=== PATIENT | female | born 1935 | race Caucasian/White ===

== ENCOUNTER 2018-06-06 10:42 | Observation (INO) ==
[2018-06-06] MEDS ORDERED: Isovue-370 500 ML INFUS..BTL IV ONE (11:09)
[2018-06-06] MEDS ORDERED: 0.9 % Sodium Chloride 500 ML IVC STA (11:10)
[2018-06-06] MEDS ORDERED: Ipratropium/Albuterol Neb 3 ML IH ONE (11:10)
[2018-06-06] MEDS ORDERED: Ondansetron 4 MG/2 ML VIAL IVP STA (11:27)
--- NOTE | 2018-06-06 11:28 | Emergency Department Note ---
Disposition Clinical Impression: Decreased appetite, Dehydration, DEANNA (acute kidney injury), Weakness Disposition: Admitted As Inpatient Condition: Good Referrals: Marbin,Kristyn King CNP [Primary Care Provider] - Forms: ED Satisfaction Letter General Adult HPI - General Chief complaint: ED Nausea/Vomiting/Diarrhea Stated complaint: "weak,diarrhea" Time Seen by Provider: 06/06/18 10:52 Source: patient, family Limitations: no limitations Nursing Notes Reviewed: Yes Vital Signs Reviewed: Yes - History of Present Illness HPI Narrative: Patient presenting for evaluation of weakness. Symptoms started about 3 weeks ago when she was placed on antibiotics. Initial doxycycline and then transition to different medication which she does not know. Outpatient chest x-ray showed concern for pneumonia. She does have COPD. She has not had significant respiratory symptoms. She has had a cough but nonproductive in nature. Coughing bouts cause her to have vomiting episodes. Over the last several days starting on Wednesday she has had associated diarrhea. Multiple episodes throughout the day which she describes as loose stools. No blood within the stools. Patient has had associated left lower quadrant tenderness as well as epigastric fullness. Does have a history of abdominal surgeries. 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 Pain Scale: 2 - Related Data Home Medications Medication Instructions Recorded Confirmed Albuterol Sulfate [Proventil Hfa] 2 puff IH Q4H PRN 01/21/15 05/03/18 Budesonide/Formoterol 160/4.5 2 puff IH BIDR 01/21/15 05/03/18 [Symbicort 160/4.5] Docusate [Colace] 100 mg PO DAILY 01/21/15 05/03/18 FLUoxetine HCl [Prozac] 20 mg PO DAILY 01/21/15 05/03/18 Folic Acid 1 mg PO DAILY 01/21/15 05/03/18 Hydrochlorothiazide 25 mg PO DAILY 01/21/15 05/03/18 LORazepam [Ativan] 0.5 mg PO TID 01/21/15 05/03/18 Losartan Potassium [Cozaar] 50 mg PO DAILY 01/21/15 05/03/18 Levothyroxine [Synthroid] 75 mcg PO DAILY 08/19/15 05/03/18 Zolpidem [Ambien] 10 mg PO HS 08/19/15 05/03/18 Famotidine [Pepcid] 20 mg PO DAILY 05/04/18 05/04/18 Previous Rx's Medication Instructions Recorded Cholecalciferol (D-3) [Vitamin D] 1,000 unit PO DAILY #90 tab 12/17/16 Handicap Placard 1 each .ROUTE AD #1 each 02/01/17 Humidifier 1 each MC AD #1 each 02/01/17 Gabapentin [Neurontin] 300 mg PO QPM PRN #30 capsule 06/29/17 Anastrozole [Arimidex] 1 tab PO DAILY #90 tablet 09/17/17 Allergies Allergy/AdvReac Type Severity Reaction Status Date / Time guaifenesin AdvReac Abdominal Verified 05/03/18 10:29 Pain All systems ED: reviewed and negative except as stated. Review of Systems: As Per HPI Constitutional: Reports: chills, weakness. Denies: fever ENT ED: Reports: congestion Cardiovascular: Reports: dyspnea on exertion. Denies: chest pain, palpitations Respiratory: Reports: cough. Denies: dyspnea, wheezes Gastrointestinal: Reports: abdominal pain, nausea, diarrhea Genitourinary: Denies: urgency, dysuria Musculoskeletal: Denies: back pain, neck pain Integumentary: Denies: rash, abrasion Neurological: Reports: weakness. Denies: headache Psychiatric: Denies: anxiety Endocrine: Reports: fatigue Past Medical History - Past Medical History Medical history: Reports: cancer, COPD, GERD, hypertension, renal disease, thyroid disease, other Surgical history: Reports: cancer surgery, cataract, cholecystectomy, colectomy, herniorrhaphy, hysterectomy Psychiatric history: Reports: anxiety, depression - Social History Smoking Status: Unknown if ever smoked Smokeless Tobacco Status: No Alcohol use: Reports: unknown Drug use: Reports: none Physical Exam General: Well appearing, nontoxic, no acute distress Head: Normocephalic Atraumatic Eyes: PERRL, EOMI ENT: Airway patent, no stridor Neck: supple, no meningismus Chest: Lungs clear to auscultation bilateral Cardiac: Regular rate and rhythm, no murmurs, rubs or gallops Abdomen: soft, mild tenderness to LLQ, nondistended; no guarding, rebound, or tenderness to percussion Musculoskeletal: Calves symmetric, nontender, no palpable cord Skin: No rash, normal skin tone Neuro: Alert and Oriented to person, place, and time; No focal deficit, CN 2-12 symmetric and intact - General Limitations: no limitations General appearance: alert, in no apparent distress Course - Reevaluation(s) Reevaluation #1: Patient has worsening kidney function over the last several weeks due to decreased by mouth intake. Given the diarrhea that she has recently it does not appear to be watery or profuse in nature. Less likely to be C. difficile. Patient has normal white count. Patient does not have evidence of pneumonia on x-ray. CT of the abdomen and pelvis did not show acute abnormality. At this point the patient has not been doing well at home. Would not be able to be hydrated at home and will likely benefit from IV fluids and continued investigation into underlying etiology. - Consultations Consultation #1: Discussed with hospitalist. Patient accepted for admission. Vital Signs Temperature 98.0 F 06/06/18 10:45 Pulse Rate 75 06/06/18 10:45 Respiratory Rate 18 06/06/18 10:45 Blood Pressure 134/77 06/06/18 10:45 O2 Sat by Pulse Oximetry 96 06/06/18 10:45 Temperature 98.0 F 06/06/18 11:08 Pulse Rate 75 06/06/18 11:08 Respiratory Rate 16 06/06/18 11:41 Blood Pressure 134/77 06/06/18 11:08 O2 Sat by Pulse Oximetry 99 06/06/18 11:41 Oxygen Delivery Oxygen Delivery Room Air Medical Decision Making - Medical Records Medical records reviewed: Yes I reviewed the patient's medical records. - Lab Data Lab results reviewed: Yes I reviewed the patient's lab results. Result diagrams: 06/06/18 11:31 06/06/18 11:31 Lab Results 06/06/18 06/06/18 06/06/18 Range/Units 11:31 11:31 11:31 WBC 5.6 (4.3-11.1) K/mcL RBC 3.62 L (3.82-4.97) M/mcL Hgb 11.4 L (11.5-15.4) g/dL Hct 34.2 L (35.3-44.9) % MCV 94.5 (83.0-100.0) fL MCH 31.5 (28.0-33.3) pg MCHC 33.3 (31.6-35.5) g/dL RDW 12.7 (11.5-14.5) % Plt Count 211 (140-400) K/mcL MPV 9.8 (9.4-12.4) fL Immature Gran % 0.7 (0-4) % Seg Neutrophils % 66.6 % Lymphocytes % 20.8 % Monocytes % 9.8 % Eosinophils % 1.6 % Basophils % 0.5 % Neutrophils # 3.8 (1.6-8.9) K/mcL Lymphocytes # 1.2 (0.6-4.6) K/mcL Monocytes # 0.6 (0.0-1.3) K/mcL Eosinophils # 0.1 (0.0-0.6) K/mcL Basophils # 0.0 (0.0-0.2) K/mcL Sodium 138 (136-145) mEq/L Potassium 3.3 L (3.5-5.1) mEq/L Chloride 104 (98-107) mEq/L Carbon Dioxide 27 (23-29) mEq/L BUN 21 (8-23) mg/dL Creatinine 1.61 H (0.60-1.20) mg/dL Est GFR ( Amer) 37 L (> 60) Est GFR (Non-Af Amer) 31 L (> 60) BUN/Creatinine Ratio 13 (6-26) Glucose 110 H (70-105) mg/dL Calculated Osmolality 290 (280-300) Calcium 8.6 (8.6-10.3) mg/dL Total Bilirubin 0.6 (0.3-1.0) mg/dL Direct Bilirubin 0.1 (0.0-0.2) mg/dL Indirect Bilirubin 0.5 (0.0-1.2) mg/dL AST 14 (13-39) Units/L ALT 6 L (7-52) Units/L Alkaline Phosphatase 42 (34-104) Units/L Troponin I < 0.03 (< 0.04) ng/mL Serum Total Protein 5.7 L (6.4-8.9) g/dL Albumin 3.4 L (3.5-5.7) g/dL Globulin 2.3 L (2.4-3.5) g/dL Albumin/Globulin Ratio 1.5 (1.1-2.2) Lipase 20 (11-82) Units/L Urine Color Yellow (Yellow) Urine Clarity Clear (Clear) Urine pH 6.0 (5.0-8.0) pH Units Ur Specific [place] 1.022 (1.010-1.025) Urine Protein Negative (Neg-Trace) mg/dL Urine Glucose (UA) Normal (Normal) mg/dL Urine Ketones Negative (Negative) mg/dL Urine Blood Negative (Negative) Urine Nitrite Negative (Negative) Urine Bilirubin Negative (Negative) Urine Urobilinogen Normal (Normal) mg/dL Ur Leukocyte Esterase Trace H (Negative) Urine Microscopic RBC 0-3 (0-3) per hpf Urine Microscopic WBC 0-3 (0-3) per hpf Ur Squamous Epith Cells Many H (None-Few) per lpf Urine Bacteria None Seen (None-Few) per hpf Hyaline Casts None Seen (None-Few) per lpf Ur Culture Indicated? NO. A (NO) - Radiology Data Radiology results reviewed: Yes I reviewed the patient's radiology results. - EKG Data EKG #1 EKG attestation: Yes I reviewed and interpreted this EKG. EKG results narrative: FREEBORN EKG shows sinus rhythm with heart of 63. Of 140 QRS 96 QTC 409 patient has no significant ST elevations or depressions in comparison to old EKG of 09/24/16.
[2018-06-06 11:41] LABS: Bilirubin,Urine Negative (Negative); Blood,Urine Negative (Negative); Clarity,Urine Clear (Clear); Color,Urine Yellow (Yellow); Glucose,Urine (UA) Normal (Normal); Ketones,Urine Negative (Negative); Leukocyte Esterase,Urine Trace (Negative); Nitrite,Urine Negative (Negative); Protein,Urine Negative (Neg-Trace); Specific Gravity,Urine 1.022 (1.010-1.025); Urobilinogen,Urine Normal (Normal)
[2018-06-06 11:42] LABS: Basophils % 0.5 %; Eosinophils # 0.1 K/mcL (0.0-0.6); Eosinophils % 1.6 %; Hematocrit 34.2 % (35.3-44.9); Hemoglobin 11.4 g/dL (11.5-15.4); Immature Granulocytes % 0.7 % (0-4); Lymphocytes # 1.2 K/mcL (0.6-4.6); Lymphocytes % 20.8 %; Mean Corpuscular HGB Conc 33.3 g/dL (31.6-35.5); Mean Corpuscular Hemoglobin 31.5 pg (28.0-33.3); Mean Corpuscular Volume 94.5 fL (83.0-100.0); Mean Platelet Volume 9.8 fL (9.4-12.4); Monocytes # 0.6 K/mcL (0.0-1.3); Monocytes % 9.8 %; Neutrophils # 3.8 K/mcL (1.6-8.9); Platelet Count 211 K/mcL (140-400); Red Blood Count 3.62 M/mcL (3.82-4.97); Red Cell Distribution Width 12.7 % (11.5-14.5); Segmented Neutrophils % 66.6 %
[2018-06-06 11:44] LABS: Bacteria,Urine None Seen per hpf (None-Few); Hyaline Casts,Urine None Seen per lpf (None-Few); RBC,Urine 0-3 per hpf (0-3); Squamous Epithelial Cell,Urine Many per lpf (None-Few); WBC,Urine 0-3 per hpf (0-3)
[2018-06-06 12:03] LABS: Alanine Aminotransferase 6 Units/L (7-52); Albumin 3.4 g/dL (3.5-5.7); Albumin/Globulin Ratio 1.5 (1.1-2.2); Alkaline Phosphatase 42 Units/L (34-104); Aspartate Amino Transferase 14 Units/L (13-39); BUN/Creatinine Ratio 13 (6-26); Bilirubin,Direct 0.1 mg/dL (0.0-0.2); Bilirubin,Indirect 0.5 mg/dL (0.0-1.2); Bilirubin,Total 0.6 mg/dL (0.3-1.0); Blood Urea Nitrogen 21 mg/dL (8-23); Calcium 8.6 mg/dL (8.6-10.3); Carbon Dioxide 27 mEq/L (23-29); Chloride 104 mEq/L (98-107); Globulin 2.3 g/dL (2.4-3.5); Glucose 110 mg/dL (70-105); Lipase 20 Units/L (11-82); Osmolality,Calculated 290 (280-300); Potassium 3.3 mEq/L (3.5-5.1); Sodium 138 mEq/L (136-145); Total Protein 5.7 g/dL (6.4-8.9); Troponin I < 0.03 ng/mL (< 0.04); eGFR For Non-African Americans 31 (> 60)
[2018-06-06 14:32] LABS: Thyroid Stimulating Hormone 0.202 mcIU/mL (0.340-5.600)
[2018-06-06] MEDS ORDERED: traMADol 50 MG TABLET PO PRN (14:34)
[2018-06-06] MEDS ORDERED: Acetaminophen 325 MG TABLET PO PRN (14:34)
[2018-06-06] MEDS ORDERED: Naloxone 0.4 MG/ML INJ IVP PRN (14:34)
--- NOTE | 2018-06-06 14:44 | Internal Med History&Physical ---
Date of Encounter: 06/06/18 Time of Encounter: 14:40 Internal Medicine - H&P: HPI Admitted From: Home Plans for Post Hospital Care: Home History of present illness: Ms. Rae is a 82 year old female presenting for evaluation of weakness. Symptoms started about 3 weeks ago when she was placed on antibiotics. Initial doxycycline and then transition to z pack. Outpatient chest x-ray showed concern for pneumonia. She does have COPD. She has not had significant respiratory symptoms. She has had a cough but nonproductive in nature. Cough ing bouts cause her to have vomiting episodes. Over the last several days starting on Wednesday she has had associated diarrhea. Multiple episodes throughout the day which she describes as loose stools. No blood within the stools. Patient has had associated left lower quadrant tenderness as well as epigastric fullness. Does have a history of abdominal surgeries. At the ED, her vital signs were stable. Labs has elevated Cr and low total protein. CXR no PNA and CT of the abdomen and pelvis without contrast no acute findings. Due to her recent abx use and diarrhea, C.diff colitis was concerned and she will be admitted as observation. 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 Psychiatric history: anxiety, depression - Past Surgical History Surgical History: cancer surgery, cataract, cholecystectomy, colectomy, herniorrhaphy, hysterectomy Additional surgical history: partial hysterectomy, 4 hernia repairs, bowel resection, GB, trach for 11 months, port placed, masectomy, D&C - Social History Smoking Status: Unknown if ever smoked Smokeless Tobacco Status: No Alcohol use: unknown Drug use: none Internal Medicine - H&P: Meds Albuterol Sulfate [Proventil Hfa] 2 puff IH Q4H PRN 01/21/15 [History] Budesonide/Formoterol 160/4.5 [Symbicort 160/4.5] 2 puff IH BIDR 01/21/15 [Histo ry] Docusate [Colace] 100 mg PO DAILY 01/21/15 [History] FLUoxetine HCl [Prozac] 20 mg PO DAILY 01/21/15 [History] Folic Acid 1 mg PO DAILY 01/21/15 [History] Hydrochlorothiazide 25 mg PO DAILY 01/21/15 [History] LORazepam [Ativan] 0.5 mg PO TID 01/21/15 [History] Losartan Potassium [Cozaar] 50 mg PO DAILY 01/21/15 [History] Levothyroxine [Synthroid] 75 mcg PO DAILY 08/19/15 [History] Zolpidem [Ambien] 10 mg PO HS 08/19/15 [History] Cholecalciferol (D-3) [Vitamin D] 1,000 unit PO DAILY #90 tab 12/17/16 [Rx] Handicap Placard 1 each .ROUTE AD #1 each 02/01/17 [Rx] Humidifier 1 each MC AD #1 each 02/01/17 [Rx] Gabapentin [Neurontin] 300 mg PO QPM PRN #30 capsule 06/29/17 [Rx] Anastrozole [Arimidex] 1 tab PO DAILY #90 tablet 09/17/17 [Rx] Famotidine [Pepcid] 20 mg PO DAILY 05/04/18 [History] Allergy/AdvReac Type Severity Reaction Status Date / Time guaifenesin AdvReac Abdominal Verified 05/03/18 10:29 Pain All Systems PM: A 10-system review of systems was performed and is negative for pertinent findings except as documented above in the HPI. Review of systems: REVIEW OF SYSTEMS: CONSTITUTIONAL: No weight loss, fever, chills, see HPI. HEENT: Eyes: No visual loss, blurred vision, double vision or yellow sclerae. Ears, Nose, Throat: No hearing loss, sneezing, congestion, runny nose or sore throat. SKIN: No rash or itching. CARDIOVASCULAR: No chest pain, chest pressure or chest discomfort. No palpitations or edema. RESPIRATORY: No shortness of breath, cough or sputum. GASTROINTESTINAL: No anorexia, nausea, vomiting. No abdominal pain or blood. see HPI. GENITOURINARY: No dysuria, urgency, or frequency. NEUROLOGICAL: No headache, dizziness, syncope, paralysis, ataxia, numbness or tingling in the extremities. No change in bowel or bladder control. MUSCULOSKELETAL: No muscle, back pain, joint pain or stiffness. HEMATOLOGIC: No anemia, bleeding or bruising. LYMPHATICS: No enlarged nodes. No history of splenectomy. PSYCHIATRIC: No history of depression or anxiety. ENDOCRINOLOGIC: No reports of sweating, cold or heat intolerance. No polyuria or polydipsia. - Constitutional Vitals: Temp Pulse Resp BP Pulse Ox 98.0 F 75 13 127/59 99 06/06/18 11:08 06/06/18 11:08 06/06/18 14:11 06/06/18 14:11 06/06/18 11:41 General appearance: Present: cooperative, A&O X 3, answers questions appropriately Exam: PHYSICAL EXAMINATION: GENERAL APPEARANCE: The patient is alert, oriented and in no acute distress. HEENT: Head is normocephalic. The sinuses are nontender. Pupils are equal and reactive. The nares are patent. Oropharynx clear without lesions. NECK: Supple without lymphadenopathy. HEART: Regular rate and rhythm. LUNGS: No crackles or wheezes are heard. ABDOMEN: Soft, nontender, nondistended with good bowel sounds heard. Inguinal area is normal. EXTREMITIES: Without cyanosis, clubbing or edema. NEUROLOGICAL: Gross nonfocal. SKIN: Warm and dry without any rash. Internal Med - H&P Results - Labs CBC & Chem 7: 06/06/18 11:31 06/06/18 11:31 Labs: Short CBC 06/06/18 Range/Units 11:31 WBC 5.6 (4.3-11.1) K/mcL Hgb 11.4 L (11.5-15.4) g/dL Hct 34.2 L (35.3-44.9) % Plt Count 211 (140-400) K/mcL Neutrophils # 3.8 (1.6-8.9) K/mcL BMP 06/06/18 11:31 Sodium 138 Potassium 3.3 L Chloride 104 Carbon Dioxide 27 BUN 21 Creatinine 1.61 H Glucose 110 H Calcium 8.6 Cardiac Enzymes 06/06/18 Range/Units 11:31 Troponin I < 0.03 (< 0.04) ng/mL Liver Function 06/06/18 Range/Units 11:31 Total Bilirubin 0.6 (0.3-1.0) mg/dL Direct Bilirubin 0.1 (0.0-0.2) mg/dL AST 14 (13-39) Units/L ALT 6 L (7-52) Units/L Alkaline Phosphatase 42 (34-104) Units/L Albumin 3.4 L (3.5-5.7) g/dL Urine 06/06/18 Range/Units 11:31 Urine Color Yellow (Yellow) Urine Clarity Clear (Clear) Urine pH 6.0 (5.0-8.0) pH Units Ur Specific [place] 1.022 (1.010-1.025) Urine Protein Negative (Neg-Trace) mg/dL Urine Glucose (UA) Normal (Normal) mg/dL - Impressions ITS Impressions Chest X-Ray 06/06/18 11:09 IMPRESSION: No acute cardiopulmonary disease. D/ / Jerod Platt MD / Jerod Platt MD Interpreting Provider: Jerod Platt MD Abdomen/Pelvis CT 06/06/18 11:12 IMPRESSION: 1. No acute findings in the abdomen or pelvis. 2. Incidental findings as above. D/ / Nilesh Slaughter MD / Nilesh Slaughter MD Interpreting Provider: Nilesh Slaughter MD - Assessment and plan (1) Weakness Current Visit: Yes Status: Acute Assessment and plan: 82 year old female with pMH of COPD, CKD, Vit D deficiency, HTN and laryngeal and breast cancer presented with 3 weeks of weakness with associated cough, and diarrhea. Seen by PCP and was diagnosed with PNA, treated with oral doxycycline and Z pack, but developed diarrhea. ED workup CXR no pna, CT abd and pelvis no acute finding. - Recent labs showed normal Vit D level, TSH was boreline in 2016, will repeat. Vit B12 was normal in 2016, will repeat. - No evidence of infection. - will check prealbumin fiven low total protein level. - Pt seems not depressed, continue home meds Fluexitine. - replace K, pending cortisol level. (2) Diarrhea Current Visit: Yes Status: Acute Assessment and plan: GI panel and c.diff pending. IVF. Qualifiers: Diarrhea type: unspecified type Qualified Code(s): R19.7 - Diarrhea, u nspecified (3) Acute on chronic renal failure Current Visit: Yes Status: Acute Assessment and plan: Baseline Cr about 1.2-1.3, likely due to diarrhea. repeat BMP in am. Qualifiers: Acute renal failure type: unspecified Chronic kidney disease stage: stage 2 (mild) Qualified Code(s): N17.9 - Acute kidney failure, unspecified; N18.2 - Chronic kidney disease, stage 2 (mild) (4) Hypothyroidism (acquired) Current Visit: No Status: Chronic Assessment and plan: TSH borderline. normal free T4. (5) COPD (chronic obstructive pulmonary disease) Current Visit: No Status: Chronic Assessment and plan: No respiratory distress, continue home meds. Qualifiers: COPD type: emphysema Emphysema type: unspecified Qualified Code(s): J43.9 - Emphysema, unspecified (6) Vitamin D deficiency Current Visit: No Status: Chronic Assessment and plan: recent Vit D level normal. continue home Vit D. (7) DVT prophylaxis Current Visit: Yes Status: Acute Assessment and plan: Heparin sq. - Time Spent With Patient Total time spent is greater than 50% in coordination of care (as documented) at patient's floor/unit and/or counseling patient: Greater than 35 minutes
[2018-06-06] MEDS: *HR* Heparin 5,000 UNIT/ML VIAL SQ SCH (18:20)
[2018-06-06] MEDS: Budesonide/Formoterol 160/4.5 1 PUFF INH IH SCH (22:11)
[2018-06-06] MEDS: *HR* LORazepam 0.5 MG TABLET PO SCH (22:11)
[2018-06-07 04:14] LABS: Basophils % 0.6 %; Eosinophils # 0.1 K/mcL (0.0-0.6); Eosinophils % 2.6 %; Hematocrit 28.9 % (35.3-44.9); Immature Granulocytes % 0.4 % (0-4); Lymphocytes # 1.4 K/mcL (0.6-4.6); Lymphocytes % 26.9 %; Mean Corpuscular HGB Conc 33.6 g/dL (31.6-35.5); Mean Corpuscular Hemoglobin 32.4 pg (28.0-33.3); Mean Corpuscular Volume 96.7 fL (83.0-100.0); Mean Platelet Volume 10.3 fL (9.4-12.4); Monocytes # 0.6 K/mcL (0.0-1.3); Monocytes % 11.6 %; Platelet Count 182 K/mcL (140-400); Red Blood Count 2.99 M/mcL (3.82-4.97); Red Cell Distribution Width 12.7 % (11.5-14.5); Segmented Neutrophils % 57.9 %
[2018-06-07 04:20] LABS: Hemoglobin 9.7 g/dL (11.5-15.4)
[2018-06-07 04:23] LABS: Calcium 8.1 mg/dL (8.6-10.3)
[2018-06-07] MEDS: *HR* Heparin 5,000 UNIT/ML VIAL SQ SCH (06:03)
[2018-06-07] MEDS: Budesonide/Formoterol 160/4.5 1 PUFF INH IH SCH (08:03)
--- NOTE | 2018-06-07 08:46 | Electrocardiograph Report ---
[facility] Date: 2018-06-06 Pat Name: Yelena Rae Department: EXAMC2 Room: 3B16 Gender: F Fruit Vendor: : [id number] Requested By: Kwame Ramirez Order Number: [id number] [place] MD: Melody Posey Measurements Intervals [place] Rate: 63 P: 81 ME: 140 QRS: 65 QRSD: 96 T: 65 QT: 399 QTc: 409 Interpretive Statements Sinus rhythm Ventricular premature complex Electronically Signed On 06-07-2018 8:44:16 EST by Melody Posey
--- NOTE | 2018-06-07 08:50 | Internal Med Progress Note ---
Hospitalist Progress Note - Encounter Date of Encounter: 06/07/18 Time of Encounter: 08:50 - Subjective Interval History: Patient seen and examined at bedside - no events overnight -states that she feels better- She has not had any stools and ststaes she has not had any stools since Sat- She does admit to sick contacts at [facility]- she did not receive flu or pneumonia vaccine- encourage patient to ambulate - Exam Vitals: Temp Pulse Resp BP Pulse Ox 97.9 F 61 16 126/55 95 06/07/18 07:24 06/07/18 07:24 06/07/18 08:03 06/07/18 07:24 06/07/18 08:03 Exam: PHYSICAL EXAMINATION: GENERAL APPEARANCE: The patient is alert, oriented and in no acute distress. HEENT: Head is normocephalic. The sinuses are nontender. Pupils are equal and reactive. The nares are patent. Oropharynx clear without lesions. NECK: Supple without lymphadenopathy. HEART: Regular rate and rhythm. LUNGS: No crackles or wheezes are heard. ABDOMEN: Soft, nontender, nondistended with good bowel sounds heard. Inguinal area is normal. EXTREMITIES: Without cyanosis, clubbing or edema. NEUROLOGICAL: Gross nonfocal. SKIN: Warm and dry without any rash. - Assessment and Plan (1) Hypothyroidism (acquired) Current Visit: No Status: Chronic (2) Weakness Current Visit: Yes Status: Acute (3) Acute on chronic renal failure Current Visit: Yes Status: Acute (4) DVT prophylaxis Current Visit: Yes Status: Acute (5) Diarrhea Current Visit: Yes Status: Acute (6) COPD (chronic obstructive pulmonary disease) Current Visit: No Status: Chronic (7) Vitamin D deficiency Current Visit: No Status: Chronic - Time Spent with Patient Total time spent is greater than 50% in coordination of care (as documented) at patient's floor/unit and/or counseling patient: Internal Medicine: Result - Labs CBC & Chem 7: 06/07/18 03:20 06/07/18 03:20 Labs: Short CBC 06/06/18 06/07/18 Range/Units 11:31 03:20 WBC 5.6 5.1 (4.3-11.1) K/mcL Hgb 11.4 L 9.7 L D (11.5-15.4) g/dL Hct 34.2 L 28.9 L (35.3-44.9) % Plt Count 211 182 (140-400) K/mcL Neutrophils # 3.8 3.0 (1.6-8.9) K/mcL BMP 06/06/18 06/07/18 11:31 03:20 Sodium 138 137 Potassium 3.3 L 4.0 Chloride 104 108 H Carbon Dioxide 27 22 L BUN 21 18 Creatinine 1.61 H 1.39 H Glucose 110 H 94 Calcium 8.6 8.1 L Cardiac Enzymes 06/06/18 Range/Units 11:31 Troponin I < 0.03 (< 0.04) ng/mL Liver Function 06/06/18 Range/Units 11:31 Total Bilirubin 0.6 (0.3-1.0) mg/dL Direct Bilirubin 0.1 (0.0-0.2) mg/dL AST 14 (13-39) Units/L ALT 6 L (7-52) Units/L Alkaline Phosphatase 42 (34-104) Units/L Albumin 3.4 L (3.5-5.7) g/dL Urine 06/06/18 Range/Units 11:31 Urine Color Yellow (Yellow) Urine Clarity Clear (Clear) Urine pH 6.0 (5.0-8.0) pH Units Ur Specific [place] 1.022 (1.010-1.025) Urine Protein Negative (Neg-Trace) mg/dL Urine Glucose (UA) Normal (Normal) mg/dL - Impressions Impressions Chest X-Ray 06/06/18 11:09 IMPRESSION: No acute cardiopulmonary disease. D/ / Jerod Platt MD / Jerod Platt MD Interpreting Provider: Jerod Platt MD Abdomen/Pelvis CT 06/06/18 11:12 IMPRESSION: 1. No acute findings in the abdomen or pelvis. 2. Incidental findings as above. D/ / Nilesh Slaughter MD / Nilesh Slaughter MD Interpreting Provider: Nilesh Slaughter MD Consult Discharge Plan - Plan Referrals: Zazueta,Kristyn L, MERCH[employer]ISE [employer]ING MANAGER [Primary Care Provider] - () (3) Acute on chronic renal failure Qualifiers: Acute renal failure type: unspecified Chronic kidney disease stage: stage 2 (mild) Qualified Code(s): N17.9 - Acute kidney failure, unspecified; N18.2 - Chronic kidney disease, stage 2 (mild) (5) Diarrhea Qualifiers: Diarrhea type: unspecified type Qualified Code(s): R19.7 - Diarrhea, unspecified (6) COPD (chronic obstructive pulmonary disease) Qualifiers: COPD type: emphysema Emphysema type: unspecified Qualified Code(s): J43.9 - Emphysema, unspecified
[2018-06-07] MEDS ORDERED: FLUoxetine 20 MG CAPSULE PO SCH (09:00)
[2018-06-07] MEDS: *HR* LORazepam 0.5 MG TABLET PO SCH ×2 (09:33→15:15)
[2018-06-07 10:32] LABS: Adenovirus Not Detected (Not Detect); Bordetella Pertussis Not Detected (Not Detect); Chlamydophila pneumoniae Not Detected (Not Detect); Coronavirus 229E Not Detected (Not Detect); Coronavirus HKU1 Not Detected (Not Detect); Coronavirus NL63 Not Detected (Not Detect); Coronavirus OC43 Not Detected (Not Detect); Human Metapneumovirus Not Detected (Not Detect); Human Rhinovirus/Enterovirus Not Detected (Not Detect); Influenza A Subtype 2009 H1 Not Detected (Not Detect); Influenza A Untypeable Not Detected (Not Detect); Influenza B Not Detected (Not Detect); Mycoplasma pneumoniae Not Detected (Not Detect); Parainfluenza Virus 1 Not Detected (Not Detect); Parainfluenza Virus 2 Not Detected (Not Detect); Parainfluenza Virus 3 Not Detected (Not Detect); Parainfluenza Virus 4 Not Detected (Not Detect); Respiratory Syncytial Virus Not Detected (Not Detect)
[2018-06-07 11:28] VITALS: BP 112/53
[2018-06-07 12:45] LABS: Hematocrit 30.2 % (35.3-44.9)
--- NOTE | 2018-06-07 15:17 | Discharge Summary ---
- NOTES TO OUTPATIENT PROVIDER Notes to Outpatient Provider: Patient presented with weakness which started approximately 3 weeks ago after being placed on antibiotics she did have some diarrhea at home however in no diarrhea here at Hospital-hypokalemia potassium was replenished and given IV fluids Orders not resulted at time of discharge: Pending orders 06/06/18 11:31 Free T4 byEquilibrium Dialysis Stat Date of Encounter: 06/07/18 Time of Encounter: 15:14 - Discharge Diagnosis (1) Hypothyroidism (acquired) Priority: Secondary Status: Chronic (2) Weakness Priority: Primary Status: Acute (3) Acute on chronic renal failure Priority: Secondary Status: Acute Qualifiers: Acute renal failure type: unspecified Chronic kidney disease stage: stage 2 (mild) Qualified Code(s): N17.9 - Acute kidney failure, unspecified; N18.2 - Chronic kidney disease, stage 2 (mild) (4) Diarrhea Priority: Secondary Status: Acute Qualifiers: Diarrhea type: unspecified type Qualified Code(s): R19.7 - Diarrhea, unspecified (5) COPD (chronic obstructive pulmonary disease) Priority: Secondary Status: Chronic Qualifiers: COPD type: emphysema Emphysema type: unspecified Qualified Code(s): J43.9 - Emphysema, unspecified (6) Vitamin D deficiency Priority: Secondary Status: Chronic Hospital course: Ms. Rae is a 82 year old female past medical history of COPD GERD hypertension renal disease hypothyroid patient presented to [facility] after experiencing weakness. Patient had been on antibiotics approximately 3 weeks ago per her PCP with some concern for possible pneumonia. Patient does admit that she did have a sick exposure while at [facility] since that time she has had a cough no fevers. After starting antibiotic she has had several loose stools however last stool was on Wednesday. Denies any bloody stools. Upon presentation she was found to have a KI chest x-ray with no pneumonia CT of the abdomen pelvis with and without contrast with no acute findings she was admitted for concerns of possible C. difficile colitis due to recent antibiotic use. During this admission patient did not have any loose stools no fevers no white count. Urinalysis was negative Respiratory panel was completed which was negative patient was given IV fluids/lites were replaced-TSH was low I did decrease her Synthroid she will have it monitored as an outpatient she has been tolerating oral intake. Patient has been ambulating without difficulty she feels that she has returned back to her baseline. I advised the patient to follow-up with her primary care provider since his provider knows her best and can adjust medications accordingly. Currently her vital signs are stable and she is ready for discharge. - Time Spent with Patient Total time spent providing and/or coordinating discharge services: - Discharge Medications Prescriptions: Levothyroxine [Synthroid] 50 mcg PO DAILY #30 tablet Home Medications: Albuterol Sulfate [Proventil Hfa] 2 puff IH Q4H PRN 01/21/15 [History] Budesonide/Formoterol 160/4.5 [Symbicort 160/4.5] 2 puff IH BIDR 01/21/15 [History] Docusate [Colace] 100 mg PO DAILY 01/21/15 [History] FLUoxetine HCl [Prozac] 20 mg PO DAILY 01/21/15 [History] Folic Acid 1 mg PO DAILY 01/21/15 [History] Hydrochlorothiazide 25 mg PO DAILY 01/21/15 [History] LORazepam [Ativan] 0.5 mg PO TID 01/21/15 [History] Losartan Potassium [Cozaar] 50 mg PO DAILY 01/21/15 [History] Zolpidem [Ambien] 10 mg PO HS 08/19/15 [History] Cholecalciferol (D-3) [Vitamin D] 1,000 unit PO DAILY #90 tab 12/17/16 [Rx] Handicap Placard 1 each .ROUTE AD #1 each 02/01/17 [Rx] Humidifier 1 each MC AD #1 each 02/01/17 [Rx] Gabapentin [Neurontin] 300 mg PO QPM PRN #30 capsule 06/29/17 [Rx] Anastrozole [Arimidex] 1 tab PO DAILY #90 tablet 09/17/17 [Rx] Famotidine [Pepcid] 20 mg PO DAILY 05/04/18 [History] Levothyroxine [Synthroid] 50 mcg PO DAILY #30 tablet 06/07/18 [Rx] Allergies/Adverse Reactions: Allergy/AdvReac Type Severity Reaction Status Date / Time guaifenesin AdvReac Abdominal Verified 05/03/18 10:29 Pain Date of admission: 06/06/18 13:53 Primary care physician: Kristyn Zazueta CNP Discharging clinician: Anat Le Anticipated date of discharge: 06/07/18 - Constitutional Vitals: Temp Pulse Resp BP Pulse Ox 98.1 F 59 16 112/53 96 06/07/18 11:27 06/07/18 11:27 06/07/18 11:27 06/07/18 11:27 06/07/18 11:27 General appearance: Present: cooperative, A&O X 3, answers questions appropriately Exam: . - Head Head exam: Present: atraumatic, normocephalic - Eye Eye exam: Present: PERRL, conjuntiva pink, sclera anicteric Pupils: Present: PERRL - Neck Neck exam general surgery: Present: supple, trachea midline. Absent: lymphadenopathy - Respiratory Respiratory exam: Present: CTAB. Absent: accessory muscle use, rales, rhonchi, wheezes - Cardiovascular Cardiovascular exam: Present: RRR, +S1, +S2. Absent: diastolic murmur, gallop, rubs, systolic murmur - GI/Abdominal GI/Abdominal exam: Present: normal bowel sounds, soft, no peritoneal signs. Absent: distended, tenderness - Extremities Exam Extremities exam: Present: warm, radial pulses palpable and symmetrical. Absent: calf tenderness, cyanotic, pedal edema - Neurological Exam Neurological exam: Present: CN II-XII intact, oriented X3, no focal deficits. Absent: pronater drift, facial droop, speech deficit - Skin Skin exam: Present: dry, intact - Patient Status Disposition: Home, Self-Care Condition: Good Functional capacity at discharge: independent ambulation Overall status at discharge: patient is back to baseline - Discharge Instructions Follow Up With: Kristyn Zazueta CNP [Primary Care Provider] - () - Diet and Activity Activity: as per physical therapy Diet: advance to your usual diet
[2018-06-08] MEDS ORDERED: Levothyroxine 25 MCG TABLET PO SCH (06:30)
== END 2018-06-07 17:01 | disposition home or self-care (01) ==
LOC: EMEROOARM 10:42 → 3BNU 10:42
PROVIDERS: ADMIT Internal Medicine; ATTEND Internal Medicine

== ENCOUNTER 2020-01-23 07:42 | Inpatient (IN) ==
[2020-01-23] MEDS ORDERED: 0.9 % Sodium Chloride 1,000 ML IVC ONE (07:45)
[2020-01-23] MEDS ORDERED: Ondansetron 4 MG/2 ML VIAL IVP ONE (07:45)
[2020-01-23] MEDS ORDERED: Isovue-370 500 ML BOTTLE IVP ONE (07:47)
[2020-01-23 08:26] LABS: Basophils % 0.2 %; Hematocrit 40.5 % (35.3-44.9); Hemoglobin 13.2 g/dL (11.5-15.4); Immature Granulocytes % 0.7 % (0-4); Lymphocytes # 0.7 K/mcL (0.6-4.6); Mean Corpuscular HGB Conc 32.6 g/dL (31.6-35.5); Mean Corpuscular Hemoglobin 31.7 pg (28.0-33.3); Mean Corpuscular Volume 97.4 fL (83.0-100.0); Mean Platelet Volume 10.2 fL (9.4-12.4); Monocytes # 0.8 K/mcL (0.0-1.3); Monocytes % 6.3 %; Neutrophils # 10.6 K/mcL (1.6-8.9); Platelet Count 234 K/mcL (140-400); Red Blood Count 4.16 M/mcL (3.82-4.97); Red Cell Distribution Width 12.8 % (11.5-14.5); Segmented Neutrophils % 86.8 %; White Blood Count 12.2 K/mcL (4.3-11.1)
[2020-01-23 08:37] LABS: Alanine Aminotransferase 8 Units/L (7-52); Albumin/Globulin Ratio 1.6 (1.1-2.2); Alkaline Phosphatase 46 Units/L (34-104); Aspartate Amino Transferase 16 Units/L (13-39); BUN/Creatinine Ratio 18 (6-26); Blood Urea Nitrogen 28 mg/dL (8-23); Calcium 9.3 mg/dL (8.6-10.3); Carbon Dioxide 26 mEq/L (23-29); Chloride 98 mEq/L (98-107); Globulin 2.5 g/dL (2.4-3.5); Glucose 150 mg/dL (70-105); Lipase 10 Units/L (11-82); Osmolality,Calculated 286 (280-300); Potassium 3.7 mEq/L (3.5-5.1); Sodium 134 mEq/L (136-145); Total Protein 6.5 g/dL (6.4-8.9); Troponin I < 0.03 ng/mL (< 0.04); eGFR For African Americans 38 (> 60); eGFR For Non-African Americans 32 (> 60)
[2020-01-23 09:39] LABS: Bilirubin,Urine Negative (Negative); Blood,Urine Negative (Negative); Clarity,Urine Clear (Clear); Color,Urine Yellow (Yellow); Glucose,Urine (UA) Normal (Normal); Ketones,Urine 20 mg/dL (Negative); Leukocyte Esterase,Urine Negative (Negative); Nitrite,Urine Negative (Negative); Protein,Urine Trace mg/dL (Neg-Trace); Specific Gravity,Urine 1.022 (1.010-1.025); Urobilinogen,Urine Normal (Normal)
[2020-01-23] MEDS ORDERED: Piperacillin/Tazobactam 3.375 GM in Water for inj. (sterile) 20 ML IVP ONE (11:01)
[2020-01-23] MEDS ORDERED: Naloxone 0.4 MG/ML INJ IVP PRN (12:10)
[2020-01-23] MEDS ORDERED: *HR* Promethazine 25 MG/ML VIAL IVP PRN (12:10)
[2020-01-23] MEDS ORDERED: Ondansetron 4 MG/2 ML VIAL IVP PRN (12:10)
[2020-01-23] MEDS: 0.9 % Sodium Chloride 1,000 ML IVC SCH (14:16)
[2020-01-23] MEDS ORDERED: Saliva Stimulant 100ml BOTTLE PO PRN (16:27)
[2020-01-23] MEDS ORDERED: Chloraseptic Spray 177 ML BOTTLE MM PRN (16:27)
[2020-01-24 02:32] LABS: Basophils % 0.2 %; Eosinophils % 0.2 %; Hematocrit 37.2 % (35.3-44.9); Immature Granulocytes % 0.6 % (0-4); Lymphocytes # 1.3 K/mcL (0.6-4.6); Lymphocytes % 12.2 %; Mean Corpuscular HGB Conc 32.3 g/dL (31.6-35.5); Mean Corpuscular Volume 99.2 fL (83.0-100.0); Mean Platelet Volume 10.5 fL (9.4-12.4); Monocytes % 9.6 %; Neutrophils # 8.4 K/mcL (1.6-8.9); Platelet Count 221 K/mcL (140-400); Red Blood Count 3.75 M/mcL (3.82-4.97); Red Cell Distribution Width 12.9 % (11.5-14.5); Segmented Neutrophils % 77.2 %; White Blood Count 10.8 K/mcL (4.3-11.1)
[2020-01-24 02:44] LABS: INR 1.1; Prothrombin Time 12.6 Seconds (9.4-12.1)
[2020-01-24 02:47] LABS: Activated Partial Thrombo Time 32.7 Seconds (26.0-36.0)
[2020-01-24 02:58] LABS: Calcium 7.9 mg/dL (8.6-10.3); Potassium 3.7 mEq/L (3.5-5.1)
[2020-01-24] MEDS: 0.9 % Sodium Chloride 1,000 ML IVC SCH (05:19)
[2020-01-24] MEDS ORDERED: *HR* Vasopressin 20 UNIT/ML VIAL ONE (16:21)
[2020-01-24] MEDS ORDERED: Ondansetron 4 MG/2 ML VIAL ONE (16:34)
[2020-01-24] MEDS ORDERED: Lidocaine -MPF 2% 2 ML VIAL ONE (16:34)
[2020-01-24] MEDS ORDERED: Dexamethasone 4 MG/ML VIAL ONE ×2 (16:34→18:34)
[2020-01-24] MEDS ORDERED: *HR* Midazolam HCl 2 MG/2 ML VIAL ONE (16:34)
[2020-01-24] MEDS ORDERED: *HR* Propofol 200 MG/20 ML VIAL IVP ONE (16:34)
[2020-01-24] MEDS ORDERED: *HR* FentaNYL (PF) 100 MCG/2 ML VIAL ONE (16:34)
[2020-01-24] MEDS ORDERED: Lidocaine -MPF 4% 5 ML AMPUL ONE (16:35)
[2020-01-24] MEDS ORDERED: *HR* Succinylcholine 200 MG/10 ML VIAL IVP ONE (16:35)
[2020-01-24] MEDS ORDERED: *HR* Rocuronium Bromide 50 MG/5 ML VIAL ONE (16:35)
[2020-01-24] MEDS ORDERED: CefOXitin 1,000 MG VIAL ONE (16:53)
[2020-01-24] MEDS ORDERED: *HR* PHENYLEPHRINE 1,000 MCG/10 ML SYRINGE IVP ONE (18:03)
[2020-01-24] MEDS ORDERED: EPHEDrine 50 MG/ML VIAL ONE (18:03)
[2020-01-24] MEDS ORDERED: Ringers Solution, Lactated 1,000 ML IVC SCH (18:30)
[2020-01-24] MEDS ORDERED: *HR* Phenylephrine 10 MG/ML VIAL ONE (18:36)
[2020-01-24] MEDS ORDERED: EPINEPHrine 1 MG/ML VIAL ONE (18:46)
[2020-01-24] MEDS: *HR* FentaNYL (PF) 100 MCG/2 ML VIAL IVP PRN ×4 (20:17→20:50)
[2020-01-24] MEDS ORDERED: Saliva Stimulant 100ml BOTTLE PO PRN (21:40)
[2020-01-24] MEDS ORDERED: *HR* Promethazine 25 MG/ML VIAL IVP PRN (21:40)
[2020-01-24] MEDS ORDERED: Ondansetron 4 MG/2 ML VIAL IVP PRN (21:40)
[2020-01-24] MEDS ORDERED: Naloxone 0.4 MG/ML INJ IVP PRN (21:40)
[2020-01-24] MEDS ORDERED: Morphine Sulfate 2 MG/ML SYRINGE IVP PRN (21:40)
[2020-01-25] MEDS: Ringers Solution, Lactated 1,000 ML IVC SCH ×3 (00:03→22:29)
[2020-01-25 01:27] LABS: Hematocrit 35.3 % (35.3-44.9); Hemoglobin 11.5 g/dL (11.5-15.4); Mean Corpuscular HGB Conc 32.6 g/dL (31.6-35.5); Mean Corpuscular Hemoglobin 31.9 pg (28.0-33.3); Mean Corpuscular Volume 98.1 fL (83.0-100.0); Mean Platelet Volume 10.4 fL (9.4-12.4); Platelet Count 218 K/mcL (140-400); Red Cell Distribution Width 13.1 % (11.5-14.5); White Blood Count 12.3 K/mcL (4.3-11.1)
[2020-01-25 01:46] LABS: Calcium 7.8 mg/dL (8.6-10.3); Potassium 3.8 mEq/L (3.5-5.1)
[2020-01-25] MEDS: Chloraseptic Spray 177 ML BOTTLE MM PRN (15:52)
[2020-01-26] MEDS: Chloraseptic Spray 177 ML BOTTLE MM PRN ×2 (03:15→20:02)
[2020-01-26 03:24] LABS: Hematocrit 33.4 % (35.3-44.9); Hemoglobin 10.6 g/dL (11.5-15.4); Mean Corpuscular HGB Conc 31.7 g/dL (31.6-35.5); Mean Corpuscular Hemoglobin 32.2 pg (28.0-33.3); Mean Corpuscular Volume 101.5 fL (83.0-100.0); Mean Platelet Volume 11.3 fL (9.4-12.4); Platelet Count 127 K/mcL (140-400); Red Blood Count 3.29 M/mcL (3.82-4.97); Red Cell Distribution Width 13.2 % (11.5-14.5)
[2020-01-26 03:40] LABS: Calcium 8.2 mg/dL (8.6-10.3); Potassium 3.9 mEq/L (3.5-5.1)
[2020-01-26] MEDS ORDERED: Folic Acid 1 MG TABLET PO SCH (09:00)
[2020-01-26] MEDS ORDERED: 0.9 % Sodium Chloride 1,000 ML IVC SCH (09:00)
[2020-01-26] MEDS ORDERED: *HR* LORazepam 0.5 MG TABLET PO SCH (09:00)
[2020-01-26] MEDS ORDERED: hydroCHLOROthiazide 25 MG TABLET PO SCH (09:00)
[2020-01-26] MEDS ORDERED: FLUoxetine 20 MG CAPSULE PO SCH (09:00)
[2020-01-26] MEDS ORDERED: Anastrozole 1 MG TABLET PO SCH (09:00)
[2020-01-26] MEDS: Acetaminophen IV 1,000 MG/100 ML INFUS..BTL IVPB SCH ×3 (09:47→20:03)
[2020-01-26] MEDS: D5% in Water 1,000 ML IVC SCH ×2 (09:50→19:15)
[2020-01-26] MEDS: Pantoprazole 40 MG VIAL IVP SCH (09:53)
[2020-01-26] MEDS: Tiotropium 18 MCG inhalation IH SCH (10:55)
[2020-01-26] MEDS: *HR* Heparin 5,000 UNIT/ML VIAL SQ SCH (15:37)
[2020-01-26] MEDS: Ringers Solution, Lactated 1,000 ML IVC SCH (19:35)
[2020-01-27] MEDS: Acetaminophen IV 1,000 MG/100 ML INFUS..BTL IVPB SCH ×4 (03:28→23:10)
[2020-01-27 05:54] LABS: Calcium 7.7 mg/dL (8.6-10.3); Potassium 3.1 mEq/L (3.5-5.1)
[2020-01-27] MEDS: *HR* Heparin 5,000 UNIT/ML VIAL SQ SCH ×2 (06:27→17:12)
[2020-01-27 06:48] LABS: Hematocrit 31.2 % (35.3-44.9); Hemoglobin 10.1 g/dL (11.5-15.4); Mean Corpuscular HGB Conc 32.4 g/dL (31.6-35.5); Mean Corpuscular Volume 98.7 fL (83.0-100.0); Mean Platelet Volume 10.7 fL (9.4-12.4); Platelet Count 174 K/mcL (140-400); Red Blood Count 3.16 M/mcL (3.82-4.97); Red Cell Distribution Width 12.8 % (11.5-14.5)
[2020-01-27] MEDS: D5% in Water 1,000 ML IVC SCH ×2 (07:04)
[2020-01-27] MEDS: Tiotropium 18 MCG inhalation IH SCH (09:50)
[2020-01-27] MEDS ORDERED: Potassium Chloride 40 MEQ, Lidocaine 1% 2 ML in 0.9 % Sodium Chloride 500 ML IVPB ONE (09:58)
[2020-01-27] MEDS: Pantoprazole 40 MG VIAL IVP SCH (10:01)
[2020-01-27 10:02] LABS: Magnesium 1.9 mg/dL (1.6-2.6); Phosphorous 1.1 mg/dL (2.7-4.5)
[2020-01-27 10:58] LABS: Adenovirus Not Detected (Not Detect); Bordetella Pertussis Not Detected (Not Detect); Chlamydophila pneumoniae Not Detected (Not Detect); Coronavirus 229E Not Detected (Not Detect); Coronavirus HKU1 Not Detected (Not Detect); Coronavirus NL63 Not Detected (Not Detect); Coronavirus OC43 Not Detected (Not Detect); Human Metapneumovirus Not Detected (Not Detect); Human Rhinovirus/Enterovirus Not Detected (Not Detect); Influenza A Subtype 2009 H1 Not Detected (Not Detect); Influenza B Not Detected (Not Detect); Mycoplasma pneumoniae Not Detected (Not Detect); Parainfluenza Virus 1 Not Detected (Not Detect); Parainfluenza Virus 2 Not Detected (Not Detect); Parainfluenza Virus 3 Not Detected (Not Detect); Parainfluenza Virus 4 Not Detected (Not Detect); Respiratory Syncytial Virus Not Detected (Not Detect)
[2020-01-27] MEDS: 0.9 % Sodium Chloride 1,000 ML IVC SCH (11:22)
[2020-01-27] MEDS ORDERED: Potassium Phosphate 44 MEQ in 0.9 % Sodium Chloride 250 ML IVPB ONE (16:07)
[2020-01-27] MEDS: Ipratropium/Albuterol Neb 3 ML IH SCH ×3 (18:14→23:18)
[2020-01-28] MEDS: Acetaminophen IV 1,000 MG/100 ML INFUS..BTL IVPB SCH ×4 (03:50→21:12)
[2020-01-28] MEDS: Ipratropium/Albuterol Neb 3 ML IH SCH ×6 (04:00→23:57)
[2020-01-28 05:23] LABS: BUN/Creatinine Ratio 25 (6-26); Blood Urea Nitrogen 26 mg/dL (8-23); Carbon Dioxide 21 mEq/L (23-29); Chloride 105 mEq/L (98-107); Glucose 85 mg/dL (70-105); Osmolality,Calculated 286 (280-300); Sodium 136 mEq/L (136-145); eGFR For African Americans > 60 (> 60); eGFR For Non-African Americans 50 (> 60)
[2020-01-28] MEDS ORDERED: *HR* Dextrose 50 % in Water (Vial) 50 ML VIAL IVP ONE (05:33)
[2020-01-28] MEDS ORDERED: *HR* Dextrose 50 % in Water (Vial) 50 ML VIAL IVP PRN (05:54)
[2020-01-28 06:03] LABS: Hematocrit 25.7 % (35.3-44.9); Hemoglobin 8.3 g/dL (11.5-15.4); Mean Corpuscular HGB Conc 32.3 g/dL (31.6-35.5); Mean Corpuscular Volume 99.2 fL (83.0-100.0); Mean Platelet Volume 10.2 fL (9.4-12.4); Platelet Count 171 K/mcL (140-400); Red Blood Count 2.59 M/mcL (3.82-4.97); Red Cell Distribution Width 13.2 % (11.5-14.5); White Blood Count 8.8 K/mcL (4.3-11.1)
[2020-01-28] MEDS: 0.9 % Sodium Chloride 1,000 ML IVC SCH (06:43)
[2020-01-28] MEDS: *HR* Heparin 5,000 UNIT/ML VIAL SQ SCH ×2 (06:44→18:11)
[2020-01-28] MEDS: Pantoprazole 40 MG VIAL IVP SCH (08:51)
[2020-01-28 11:16] LABS: Magnesium 1.7 mg/dL (1.6-2.6); Phosphorous 3.3 mg/dL (2.7-4.5)
[2020-01-28] MEDS: D5% in 0.9% NACL 1,000 ML IVC SCH (12:16)
[2020-01-28] MEDS: Levothyroxine Sodium 100 MCG VIAL IVP SCH (18:09)
[2020-01-29] MEDS: Acetaminophen IV 1,000 MG/100 ML INFUS..BTL IVPB SCH ×2 (02:36→09:00)
[2020-01-29] MEDS: D5% in 0.9% NACL 1,000 ML IVC SCH ×2 (02:41→23:04)
[2020-01-29] MEDS: Ipratropium/Albuterol Neb 3 ML IH SCH ×6 (03:48→23:20)
[2020-01-29 04:21] LABS: Hematocrit 28.7 % (35.3-44.9); Hemoglobin 9.2 g/dL (11.5-15.4); Mean Corpuscular HGB Conc 32.1 g/dL (31.6-35.5); Mean Corpuscular Hemoglobin 32.9 pg (28.0-33.3); Mean Corpuscular Volume 102.5 fL (83.0-100.0); Platelet Count 171 K/mcL (140-400); Red Cell Distribution Width 13.1 % (11.5-14.5); White Blood Count 7.6 K/mcL (4.3-11.1)
[2020-01-29 04:38] LABS: BUN/Creatinine Ratio 17 (6-26); Blood Urea Nitrogen 15 mg/dL (8-23); Calcium 6.8 mg/dL (8.6-10.3); Carbon Dioxide 23 mEq/L (23-29); Chloride 108 mEq/L (98-107); Glucose 118 mg/dL (70-105); Magnesium 2.2 mg/dL (1.6-2.6); Osmolality,Calculated 286 (280-300); Phosphorous 1.5 mg/dL (2.7-4.5); Potassium 3.8 mEq/L (3.5-5.1); Sodium 137 mEq/L (136-145); eGFR For African Americans > 60 (> 60); eGFR For Non-African Americans 60 (> 60)
[2020-01-29] MEDS: *HR* Heparin 5,000 UNIT/ML VIAL SQ SCH ×2 (05:31→17:22)
[2020-01-29] MEDS: Levothyroxine Sodium 100 MCG VIAL IVP SCH (09:03)
[2020-01-29] MEDS: Pantoprazole 40 MG VIAL IVP SCH (09:03)
[2020-01-29] MEDS: Metoclopramide 20 MG in 0.9 % Sodium Chloride 50 ML IVPB SCH ×2 (10:13→18:37)
[2020-01-29] MEDS ORDERED: Potassium Phosphate 44 MEQ in 0.9 % Sodium Chloride 250 ML IVPB ONE (10:38)
[2020-01-29] MEDS ORDERED: Calcium Gluconate 1gm/50mL 1 GM/50 ML BAG IVPB ONE (11:41)
[2020-01-29] MEDS ORDERED: Acetaminophen 325 MG TABLET PO PRN (11:46)
[2020-01-29 13:58] LABS: Calcium 7.1 mg/dL (8.6-10.3); Phosphorous 1.5 mg/dL (2.7-4.5)
[2020-01-29 21:06] LABS: Calcium 7.5 mg/dL (8.6-10.3); Phosphorous 3.2 mg/dL (2.7-4.5)
[2020-01-29] MEDS ORDERED: Melatonin 3 MG TABLET PO STA (23:09)
[2020-01-30] MEDS: Metoclopramide 20 MG in 0.9 % Sodium Chloride 50 ML IVPB SCH ×2 (02:18→08:48)
[2020-01-30] MEDS: Ipratropium/Albuterol Neb 3 ML IH SCH ×6 (03:27→23:29)
[2020-01-30] MEDS: D5% in 0.9% NACL 1,000 ML IVC SCH (05:40)
[2020-01-30] MEDS: *HR* Heparin 5,000 UNIT/ML VIAL SQ SCH ×2 (05:40→18:46)
[2020-01-30 06:31] LABS: Hematocrit 33.8 % (35.3-44.9); Hemoglobin 10.6 g/dL (11.5-15.4); Mean Corpuscular HGB Conc 31.4 g/dL (31.6-35.5); Mean Corpuscular Hemoglobin 31.9 pg (28.0-33.3); Mean Corpuscular Volume 101.8 fL (83.0-100.0); Mean Platelet Volume 10.4 fL (9.4-12.4); Platelet Count 266 K/mcL (140-400); Red Blood Count 3.32 M/mcL (3.82-4.97); Red Cell Distribution Width 13.2 % (11.5-14.5); White Blood Count 6.1 K/mcL (4.3-11.1)
[2020-01-30 06:44] LABS: BUN/Creatinine Ratio 13 (6-26); Blood Urea Nitrogen 11 mg/dL (8-23); Calcium 7.3 mg/dL (8.6-10.3); Carbon Dioxide 22 mEq/L (23-29); Chloride 109 mEq/L (98-107); Glucose 128 mg/dL (70-105); Osmolality,Calculated 289 (280-300); Sodium 139 mEq/L (136-145); eGFR For African Americans > 60 (> 60); eGFR For Non-African Americans > 60 (> 60)
[2020-01-30] MEDS ORDERED: *HR* OxyCODONE/APAP 5/325 TABLET PO PRN (07:55)
[2020-01-30 08:25] LABS: Magnesium 1.9 mg/dL (1.6-2.6); Phosphorous 1.7 mg/dL (2.7-4.5)
[2020-01-30] MEDS: Ibuprofen 800 MG TABLET PO SCH ×3 (08:30→16:45)
[2020-01-30] MEDS: Pantoprazole 40 MG VIAL IVP SCH (08:32)
[2020-01-30] MEDS ORDERED: Potassium Phosphate 44 MEQ in 0.9 % Sodium Chloride 250 ML IVPB ONE (08:37)
[2020-01-30] MEDS ORDERED: *HR* Metoprolol 5 MG/5 ML VIAL IVP ONE (13:47)
[2020-01-30] MEDS ORDERED: Perflutren Lipid Microsphere 1.3 ML in 0.9 % Sodium Chloride 8.7 ML IVP PRN (15:07)
[2020-01-30] MEDS ORDERED: Ringers Solution, Lactated 1,000 ML IVC SCH (18:15)
[2020-01-31] MEDS ORDERED: Ringers Solution, Lactated 1,000 ML IVC SCH (00:03)
[2020-01-31] MEDS: Levalbuterol Neb 1.25 MG/3 ML IH SCH ×5 (00:09→15:53)
[2020-01-31] MEDS: Ibuprofen 800 MG TABLET PO SCH ×2 (00:25→13:06)
[2020-01-31 04:40] LABS: Hematocrit 31.9 % (35.3-44.9); Hemoglobin 10.2 g/dL (11.5-15.4); Mean Corpuscular Hemoglobin 31.9 pg (28.0-33.3); Mean Corpuscular Volume 99.7 fL (83.0-100.0); Mean Platelet Volume 9.9 fL (9.4-12.4); Platelet Count 297 K/mcL (140-400); Red Cell Distribution Width 13.4 % (11.5-14.5); White Blood Count 7.1 K/mcL (4.3-11.1)
[2020-01-31 04:58] LABS: BUN/Creatinine Ratio 11 (6-26); Blood Urea Nitrogen 11 mg/dL (8-23); Calcium 7.2 mg/dL (8.6-10.3); Carbon Dioxide 21 mEq/L (23-29); Chloride 107 mEq/L (98-107); Glucose 113 mg/dL (70-105); Magnesium 1.6 mg/dL (1.6-2.6); Osmolality,Calculated 292 (280-300); Phosphorous 2.1 mg/dL (2.7-4.5); Potassium 4.1 mEq/L (3.5-5.1); Sodium 141 mEq/L (136-145); eGFR For African Americans > 60 (> 60); eGFR For Non-African Americans 51 (> 60)
[2020-01-31 05:04] LABS: ABG Base Excess -3 mEq/L (-2 to 3); ABG HCO3 21 mEq/L (21-27); ABG Oxygen Saturation 90 % (95-98); ABG PCO2 31 mmHg (35-45); ABG PH 7.44 pH Units (7.32-7.45); ABG PO2 56 mmHg (85-104); ABG TCO2 22 mEq/L (20-26)
[2020-01-31] MEDS: *HR* Heparin 5,000 UNIT/ML VIAL SQ SCH (06:14)
[2020-01-31 11:33] VITALS: BP 163/68
== END 2020-01-31 16:10 | disposition other institution (70) | DRG 336 ==
LOC: 3ANU 07:42 → EMEROOARM 07:42 → 3ANU 14:40 → SUATTDRO 01-24 16:19
PROVIDERS: ADMIT Family Medicine; ATTEND Internal Medicine

== ENCOUNTER 2022-01-10 13:31 | Inpatient (IN) ==
[2022-01-10] MEDS ORDERED: Ipratropium/Albuterol Neb 3 ML ONE (13:39)
[2022-01-10] MEDS ORDERED: Ipratropium/Albuterol Neb 3 ML IH ONE (13:41)
[2022-01-10] MEDS ORDERED: methylPREDNISolone 125 MG/2 ML VIAL IVP ONE (13:41)
[2022-01-10] MEDS ORDERED: 0.9 % Sodium Chloride 500 ML IVC ONE (13:58)
[2022-01-10 14:19] LABS: Hematocrit 41.2 % (35.3-44.9); Hemoglobin 13.4 g/dL (11.5-15.4); Mean Corpuscular HGB Conc 32.5 g/dL (31.6-35.5); Mean Corpuscular Hemoglobin 31.3 pg (28.0-33.3); Mean Corpuscular Volume 96.3 fL (83.0-100.0); Mean Platelet Volume 10.9 fL (9.4-12.4); Nucleated Red Blood Cells 0.2 /100 WBC (0); Platelet Count 320 K/mcL (140-400); Red Blood Count 4.28 M/mcL (3.82-4.97); Red Cell Distribution Width 13.2 % (11.5-14.5); White Blood Count 10.7 K/mcL (4.3-11.1)
[2022-01-10 14:42] LABS: BUN/Creatinine Ratio 22 (6-26); Blood Urea Nitrogen 78 mg/dL (8-23); Calcium 9.7 mg/dL (8.6-10.3); Carbon Dioxide 21 mEq/L (23-29); Chloride 90 mEq/L (98-107); Glucose 162 mg/dL (70-105); Osmolality,Calculated 303 (280-300); Potassium 5.4 mEq/L (3.5-5.1); Sodium 133 mEq/L (136-145); Troponin I < 0.03 ng/mL (< 0.04); eGFR For African Americans 15 (> 60); eGFR For Non-African Americans 12 (> 60)
[2022-01-10 14:43] LABS: Lymphocytes # 1.1 K/mcL (0.6-4.6); Monocytes # 0.9 K/mcL (0.0-1.3); Neutrophils # 8.8 K/mcL (1.6-8.9); Platelet Estimate Normal (Normal)
[2022-01-10 14:51] LABS: Influenza A PCR Negative (Negative); Influenza B PCR Negative (Negative); Resp. Syncytial Virus PCR Negative (Negative); SARS-CoV-2 by PCR (In House) Negative (Negative)
[2022-01-10] MEDS ORDERED: Ringers Solution, Lactated 1,000 ML IVC ONE ×2 (15:10→16:53)
[2022-01-10 15:11] LABS: Creatine Kinase 40 Units/L (30-223)
[2022-01-10 15:18] LABS: Bacteria,Urine Few per hpf (None-Few); Bilirubin,Urine Small (Negative); Blood,Urine Negative (Negative); Clarity,Urine Turbid (Clear); Color,Urine Yellow (Yellow); Glucose,Urine (UA) Normal (Normal); Hyaline Casts,Urine Few per lpf (None Seen); Ketones,Urine Negative (Negative); Leukocyte Esterase,Urine Negative (Negative); Mucus,Urine Few per lpf (None-Few); Nitrite,Urine Negative (Negative); Protein,Urine Trace mg/dL (Neg-Trace); RBC,Urine 0-3 per hpf (0-3); Specific Gravity,Urine 1.022 (1.010-1.025); Squamous Epithelial Cell,Urine Few per hpf (None-Few); Urobilinogen,Urine Normal (Normal); WBC,Urine 0-3 per hpf (0-3)
[2022-01-10] MEDS ORDERED: cefTRIAXone 2,000 MG in 0.9 % Sodium Chloride 20 ML IVP ONE (15:25)
[2022-01-10] MEDS ORDERED: Azithromycin 500 MG in 0.9 % Sodium Chloride 250 ML IVPB ONE (15:25)
[2022-01-10] MEDS ORDERED: Ampicillin/Sulbactam 1,500 MG in 0.9 % Sodium Chloride Mini Bag 100 ML IVPB ONE (15:50)
[2022-01-10] MEDS ORDERED: Acetaminophen 325 MG TABLET PO PRN (16:03)
[2022-01-10] MEDS: Ampicillin/Sulbactam 1,500 MG in 0.9 % Sodium Chloride Mini Bag 100 ML IVPB SCH (16:51)
[2022-01-10] MEDS: *HR* Heparin 5,000 UNIT/ML VIAL SQ SCH (18:16)
[2022-01-10 19:00] LABS: Alanine Aminotransferase 8 Units/L (7-52); Albumin 4.1 g/dL (3.5-5.7); Albumin/Globulin Ratio 1.3 (1.1-2.2); Alkaline Phosphatase 46 Units/L (34-104); Aspartate Amino Transferase 17 Units/L (13-39); Bilirubin,Direct 0.2 mg/dL (0.0-0.2); Bilirubin,Indirect 0.6 mg/dL (0.0-1.0); Bilirubin,Total 0.8 mg/dL (0.3-1.0); Globulin 3.2 g/dL (2.4-3.5); Lipase 11 Units/L (11-82); Phosphorous 7.3 mg/dL (2.7-4.5); Thyroid Stimulating Hormone 0.217 mcIU/mL (0.340-5.600); Total Protein 7.3 g/dL (6.4-8.9)
[2022-01-10] MEDS: D5% in 0.45% NACL 1,000 ML IVC SCH (19:06)
[2022-01-10] MEDS ORDERED: *HR* Metoprolol 5 MG/5 ML VIAL IVP ONE (19:50)
[2022-01-10 20:55] LABS: Calcium 9.8 mg/dL (8.6-10.3); Potassium 4.9 mEq/L (3.5-5.1)
[2022-01-10] MEDS: Melatonin 3 MG TABLET PO PRN (21:34)
[2022-01-11] MEDS ORDERED: Benzonatate 100 MG CAPSULE PO PRN (01:26)
[2022-01-11 04:41] LABS: Adenovirus F 40/41 PCR Not detected (Not detect); Astrovirus PCR Not detected (Not detect); C.difficile Toxin A/B Gene PCR Not detected (Not detect); Campylobacter by PCR Not detected (Not detect); Cryptosporidium by PCR Not detected (Not detect); Cyclospora cayetanensis PCR Not detected (Not detect); Entamoeba histolytica PCR Not detected (Not detect); Enteroaggregative E.coli(EAEC) Not detected (Not detect); Enteropathogenic E.coli(EPEC) Not detected (Not detect); Enterotoxigenic E.coli (ETEC) Not detected (Not detect); Giardia lamblia PCR Not detected (Not detect); Norovirus GI/GII PCR Not detected (Not detect); Plesiomonas shigelloides PCR Not detected (Not detect); Rotavirus A PCR Not detected (Not detect); Salmonella PCR Not detected (Not detect); Sapovirus PCR Not detected (Not detect); Shig/EnteroinvasiveE coli EIEC Not detected (Not detect); Shigalike tox-prod E coli STEC Not detected (Not detect); Vibrio PCR Not detected (Not detect); Vibrio cholerae PCR Not detected (Not detect); Yersinia enterocolitica PCR Not detected (Not detect)
[2022-01-11] MEDS: *HR* Heparin 5,000 UNIT/ML VIAL SQ SCH ×2 (04:48→16:38)
[2022-01-11] MEDS: D5% in 0.45% NACL 1,000 ML IVC SCH ×2 (04:49→16:38)
[2022-01-11 06:29] LABS: Hematocrit 36.8 % (35.3-44.9); Hemoglobin 12.4 g/dL (11.5-15.4); Mean Corpuscular HGB Conc 33.7 g/dL (31.6-35.5); Mean Corpuscular Hemoglobin 31.8 pg (28.0-33.3); Mean Corpuscular Volume 94.4 fL (83.0-100.0); Platelet Count 272 K/mcL (140-400); Red Cell Distribution Width 13.2 % (11.5-14.5); White Blood Count 12.6 K/mcL (4.3-11.1)
[2022-01-11 06:48] LABS: Calcium 8.3 mg/dL (8.6-10.3); Magnesium 1.9 mg/dL (1.6-2.6); Phosphorous 4.6 mg/dL (2.7-4.5); Potassium 4.2 mEq/L (3.5-5.1)
[2022-01-11] MEDS: Ondansetron 4 MG/2 ML VIAL IVP PRN ×2 (06:48→22:19)
[2022-01-11] MEDS ORDERED: *HR* Metoprolol 5 MG/5 ML VIAL IVP ONE (12:20)
[2022-01-11 16:13] LABS: Sodium, Urine 14.6 mEq/L
[2022-01-11] MEDS: Ampicillin/Sulbactam 1,500 MG in 0.9 % Sodium Chloride Mini Bag 100 ML IVPB SCH (16:37)
[2022-01-11] MEDS: *HR* Metoprolol 5 MG/5 ML VIAL IVP SCH ×2 (17:16→23:12)
[2022-01-11] MEDS ORDERED: *HR* Metoprolol 5 MG/5 ML VIAL IVP SCH (18:00)
[2022-01-12 03:47] LABS: Albumin 3.4 g/dL (3.5-5.7); Phosphorous 4.3 mg/dL (2.7-4.5); Potassium 3.7 mEq/L (3.5-5.1)
[2022-01-12 03:51] LABS: Hepatitis B Surface Antigen Nonreactive (Nonreactive)
[2022-01-12] MEDS ORDERED: Ringers Solution, Lactated 500 ML IVC ONE (04:15)
[2022-01-12 04:20] LABS: Hepatitis B Core IgM Nonreactive (Nonreactive); Hepatitis C Virus Antibody Nonreactive (Nonreactive)
[2022-01-12 04:22] LABS: Hepatitis A Antibody IgM Nonreactive (Nonreactive)
[2022-01-12] MEDS ORDERED: *HR* Metoprolol 5 MG/5 ML VIAL IVP ONE (04:57)
[2022-01-12] MEDS ORDERED: Ringers Solution, Lactated 1,000 ML IVC ONE (04:59)
[2022-01-12] MEDS: *HR* Heparin 5,000 UNIT/ML VIAL SQ SCH ×2 (05:13→18:06)
[2022-01-12] MEDS: *HR* Metoprolol 5 MG/5 ML VIAL IVP SCH ×4 (06:37→23:50)
[2022-01-12] MEDS: D5% in 0.45% NACL 1,000 ML IVC SCH (07:00)
[2022-01-12] MEDS: *HR* LORazepam 2 MG/ML VIAL IVP SCH ×3 (15:46→23:50)
[2022-01-12] MEDS: Ampicillin/Sulbactam 1,500 MG in 0.9 % Sodium Chloride Mini Bag 100 ML IVPB SCH (18:07)
[2022-01-12] MEDS: D5% in Lactated Ringers 1,000 ML IVC SCH (19:08)
[2022-01-12] MEDS: Melatonin 3 MG TABLET PO PRN (23:51)
[2022-01-13] MEDS: D5% in Lactated Ringers 1,000 ML IVC SCH ×2 (01:38→08:36)
[2022-01-13] MEDS: *HR* Heparin 5,000 UNIT/ML VIAL SQ SCH ×2 (05:58→17:39)
[2022-01-13] MEDS: *HR* Metoprolol 5 MG/5 ML VIAL IVP SCH ×4 (05:58→23:38)
[2022-01-13 08:48] LABS: Calcium 7.7 mg/dL (8.6-10.3)
[2022-01-13] MEDS ORDERED: Dextrose Gel 15 GM/37.5 ML TUBE PO PRN ×2 (11:43)
[2022-01-13] MEDS ORDERED: D5% in Water 1,000 ML IVC PRN (11:43)
[2022-01-13] MEDS: *HR* Dextrose 50 % in Water (Syg) 50 ML SYRINGE IVP PRN (11:55)
[2022-01-13] MEDS: D5% in 0.45% NACL 1,000 ML IVC SCH (12:12)
[2022-01-13] MEDS: Ampicillin/Sulbactam 1,500 MG in 0.9 % Sodium Chloride Mini Bag 100 ML IVPB SCH ×2 (14:11→20:42)
[2022-01-13 16:28] LABS: Hematocrit 35.4 % (35.3-44.9); Hemoglobin 11.2 g/dL (11.5-15.4); Mean Corpuscular HGB Conc 31.6 g/dL (31.6-35.5); Mean Corpuscular Hemoglobin 31.5 pg (28.0-33.3); Mean Corpuscular Volume 99.4 fL (83.0-100.0); Mean Platelet Volume 10.8 fL (9.4-12.4); Platelet Count 202 K/mcL (140-400); Red Blood Count 3.56 M/mcL (3.82-4.97); Red Cell Distribution Width 13.2 % (11.5-14.5); White Blood Count 13.1 K/mcL (4.3-11.1)
[2022-01-14] MEDS: D5% in 0.45% NACL 1,000 ML IVC SCH (01:54)
[2022-01-14 02:18] LABS: BUN/Creatinine Ratio 37 (6-26); Blood Urea Nitrogen 36 mg/dL (8-23); Calcium 7.5 mg/dL (8.6-10.3); Carbon Dioxide 30 mEq/L (23-29); Chloride 106 mEq/L (98-107); Glucose 110 mg/dL (70-105); Osmolality,Calculated 301 (280-300); Potassium 3.7 mEq/L (3.5-5.1); Sodium 141 mEq/L (136-145); eGFR For African Americans > 60 (> 60); eGFR For Non-African Americans 54 (> 60)
[2022-01-14] MEDS: *HR* Heparin 5,000 UNIT/ML VIAL SQ SCH ×2 (05:02→17:47)
[2022-01-14] MEDS: *HR* Metoprolol 5 MG/5 ML VIAL IVP SCH (05:02)
[2022-01-14] MEDS ORDERED: Potassium Phosphate 44 MEQ in 0.9 % Sodium Chloride 250 ML IVPB ONE (06:57)
[2022-01-14] MEDS ORDERED: Amoxicillin/Clavulanate 500 MG TABLET PO SCH (17:00)
[2022-01-14] MEDS: *HR* Dextrose 50 % in Water (Syg) 50 ML SYRINGE IVP PRN (17:16)
[2022-01-14] MEDS: Melatonin 3 MG TABLET PO PRN (21:28)
[2022-01-15 01:59] LABS: BUN/Creatinine Ratio 22 (6-26); Blood Urea Nitrogen 19 mg/dL (8-23); Calcium 7.2 mg/dL (8.6-10.3); Carbon Dioxide 23 mEq/L (23-29); Chloride 105 mEq/L (98-107); Glucose 134 mg/dL (70-105); Magnesium 1.6 mg/dL (1.6-2.6); Osmolality,Calculated 286 (280-300); Phosphorous 1.7 mg/dL (2.7-4.5); Potassium 4.1 mEq/L (3.5-5.1); Sodium 136 mEq/L (136-145); eGFR For African Americans > 60 (> 60); eGFR For Non-African Americans > 60 (> 60)
[2022-01-15] MEDS: *HR* Heparin 5,000 UNIT/ML VIAL SQ SCH ×2 (06:25→18:43)
[2022-01-15] MEDS: Ringers Solution, Lactated 1,000 ML IVC SCH (14:12)
[2022-01-15] MEDS ORDERED: *HR* Propofol 200 MG/20 ML VIAL IVP ONE (14:21)
[2022-01-15] MEDS ORDERED: Lidocaine -MPF 2% 5 ML VIAL ONE (14:21)
[2022-01-15] MEDS: Melatonin 3 MG TABLET PO PRN (21:49)
[2022-01-16 05:08] LABS: BUN/Creatinine Ratio 17 (6-26); Blood Urea Nitrogen 13 mg/dL (8-23); Calcium 7.7 mg/dL (8.6-10.3); Carbon Dioxide 25 mEq/L (23-29); Chloride 104 mEq/L (98-107); Glucose 108 mg/dL (70-105); Magnesium 1.4 mg/dL (1.6-2.6); Osmolality,Calculated 279 (280-300); Phosphorous 1.3 mg/dL (2.7-4.5); Potassium 4.5 mEq/L (3.5-5.1); Sodium 134 mEq/L (136-145); eGFR For African Americans > 60 (> 60); eGFR For Non-African Americans > 60 (> 60)
[2022-01-16] MEDS: *HR* Heparin 5,000 UNIT/ML VIAL SQ SCH ×2 (06:30→17:11)
[2022-01-16] MEDS ORDERED: Potassium Phosphate 44 MEQ in 0.9 % Sodium Chloride 250 ML IVPB ONE (08:00)
[2022-01-16] MEDS: Ringers Solution, Lactated 1,000 ML IVC SCH (12:13)
[2022-01-16 13:29] LABS: Influenza A PCR Negative (Negative); Influenza B PCR Negative (Negative); Resp. Syncytial Virus PCR Negative (Negative)
[2022-01-16 13:32] LABS: SARS-CoV-2 by PCR (In House) Negative (Negative)
[2022-01-16 16:42] VITALS: BP 125/64; PULSE 94; TEMP 97.8; O2SAT 96
== END 2022-01-16 20:20 | disposition other institution (70) | DRG 871 ==
LOC: 2ANU 13:31 → EMEROOARM 13:31 → 2NENU 15:49 → SUATTDRO 16:14 → 2NENU 17:31
PROVIDERS: ADMIT Internal Medicine; ATTEND Internal Medicine